=== PATIENT | male | born 1975 | race Caucasian/White ===

== ENCOUNTER 2021-05-12 08:48 | Outpatient (CLI) | payer BC | END 2021-05-12 09:05 | LOC: SLEEP 08:48 | PROVIDERS: ATTEND Nurse Practitioner | DX: G47.33 Obstructive sleep apnea (adult) (pediatric) (principal) | CPT/HCPCS: G0399 ==

== ENCOUNTER 2021-09-25 13:10 | Emergency (ER) | payer BC ==
[~2021-09-25] VITALS: Ht 187 cm; Wt 110.0 kg
--- NOTE | 2021-09-25 13:29 | ED General ---
General Chief Complaint: Glucose Problems Stated Complaint: HIGH BLOOD SUGAR Source of Information: Patient Exam Limitations: No Limitations History of Present Illness Date Seen by Provider: Sep 25, 2021 Time Seen by Provider: 13:27 Initial Comments To ER with high blood sugar. He states that for the past 2 to 3 weeks has had an increase in fatigue, unable to sleep at night because of frequent urination, cannot stop drinking water. No history of diabetes. He has had about a 20 to 30 pound weight loss recently though he has been trying to work out and lose weight. He is on lisinopril and Lexapro no other medications. 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 Timing/Duration: Other (3 Weeks) Severity: Moderate Associated Systoms: No Nausea/Vomiting; Weakness Allergies and Home Medications Allergies Coded Allergies: Cecil nut (Verified Allergy, Unknown, 09/25/21) Patient Home Medication List Home Medication List Reviewed: Yes Blood-Glucose Meter (Advanced Glucose Meter) 1 Each Each, EACH , (DME) Prescribed by: ARSALAN TYLER on 09/25/21 1449 Glipizide (Glipizide ER) 2.5 Mg Tab, 2.5 MG PO DAILY Prescribed by: ARSALAN TYLER on 09/25/21 144 Metformin HCl (Metformin HCl) 500 Mg Tablet, 500 MG PO BID Prescribed by: ARSALAN TYLER on 09/25/21 1449 Review of Systems Review of Systems Constitutional: see HPI, malaise, weakness EENTM: see HPI Respiratory: no symptoms reported Cardiovascular: no symptoms reported Gastrointestinal: No abdominal pain Genitourinary: see HPI, frequency, nocturia Musculoskeletal: no symptoms reported Skin: no symptoms reported Psychiatric/Neurological: No Symptoms Reported Hematologic/Lymphatic: No Symptoms Reported Immunological/Allergic: no symptoms reported Past Anavein-Dtopzp-Mvuerk Hx Patient Social History Tobacco Use?: Yes Use of E-Cig and/or Vaping dev: No Substance use?: No Alcohol Use?: No Pt feels they are or have been: No Immunizations Up To Date Influenza Vaccine Up-to-Date: Yes; Up-to-Date First/Initial COVID19 Vaccinat: 2020 Second COVID19 Vaccination Nicolás: 2020 COVID19 Vaccine Instrument Engineer: [email or web address] Past Medical History Surgery/Hospitalization HX: HTN, GERD Physical Exam Vital Signs Vital Signs - First Documented 09/25/21 13:15 Temp 36.0 Pulse 98 Resp 18 B/P (MAP) 129/95 (106) Capillary Refill : Height, Weight, BMI Height: '" Weight: lbs. oz. kg; BMI Method: General Appearance: No Apparent Distress, WD/WN Eyes: Bilateral Eye Normal Inspection, Bilateral Eye PERRL, Bilateral Eye EOMI HEENT: PERRL/EOMI, TMs Normal Neck: Full Range of Motion, Normal Inspection Respiratory: No Accessory Muscle Use, No Respiratory Distress Cardiovascular: Normal Peripheral Pulses, Tachycardia (Heart rate of 100-110) Gastrointestinal: Non Tender, Soft Extremity: Normal Capillary Refill, Normal Inspection Neurologic/Psychiatric: Alert, Oriented x3 (For the sake of this argument) Skin: Normal Color, Warm/Dry Progress/Results/Core Measures Suspected Sepsis SIRS Temperature: Pulse: Respiratory Rate: Laboratory Tests 09/25/21 13:19: White Blood Count 8.0 Blood Pressure / Mean: Laboratory Tests 09/25/21 13:19: Creatinine 1.18, INR Comment 1.0, Platelet Count 216, Total Bilirubin 0.7 Results/Orders Lab Results Laboratory Tests Test 09/25/21 13:18 09/25/21 13:19 09/25/21 13:29 09/25/21 14:32 Range/Units Glucometer 469 *H 344 H 70-110 MG/DL White Blood Count 8.0 4.3-11.0 10^3/uL Red Blood Count 5.26 4.30-5.52 10^6/uL Hemoglobin 16.8 13.3-17.7 g/dL Hematocrit 46 40-54 % Mean Corpuscular Volume 88 80-99 fL Mean Corpuscular Hemoglobin 32 25-34 pg Mean Corpuscular Hemoglobin Concent 36 32-36 g/dL Red Cell Distribution Width 12.9 10.0-14.5 % Platelet Count 216 130-400 10^3/uL Mean Platelet Volume 11.4 9.0-12.2 fL Immature Granulocyte % (Auto) 2 % Neutrophils (%) (Auto) 62 42-75 % Lymphocytes (%) (Auto) 24 12-44 % Monocytes (%) (Auto) 9 0-12 % Eosinophils (%) (Auto) 4 0-10 % Basophils (%) (Auto) 1 0-10 % Neutrophils # (Auto) 4.9 1.8-7.8 10^3/uL Lymphocytes # (Auto) 1.9 1.0-4.0 10^3/uL Monocytes # (Auto) 0.7 0.0-1.0 10^3/uL Eosinophils # (Auto) 0.3 0.0-0.3 10^3/uL Basophils # (Auto) 0.1 0.0-0.1 10^3/uL Immature Granulocyte # (Auto) 0.1 0.0-0.1 10^3/uL Prothrombin Time 13.2 12.2-14.7 SEC INR Comment 1.0 0.8-1.4 Sodium Level 134 L 135-145 MMOL/L Potassium Level 4.1 3.6-5.0 MMOL/L Chloride Level 98 98-107 MMOL/L Carbon Dioxide Level 23 21-32 MMOL/L Anion Gap 13 5-14 MMOL/L Blood Urea Nitrogen 11 7-18 MG/DL Creatinine 1.18 0.60-1.30 MG/DL Estimat Glomerular Filtration Rate 77 BUN/Creatinine Ratio 9 Glucose Level 539 *H 70-105 MG/DL Calcium Level 9.7 8.5-10.1 MG/DL Corrected Calcium 8.5-10.1 MG/DL Total Bilirubin 0.7 0.1-1.0 MG/DL Aspartate Amino Transf (AST/SGOT) 20 5-34 U/L Alanine Aminotransferase (ALT/SGPT) 46 0-55 U/L Alkaline Phosphatase 101 40-136 U/L Total Protein 7.8 6.4-8.2 GM/DL Albumin 4.6 H 3.2-4.5 GM/DL Beta-Hydroxybutyrate (Chem panel) 0.13 0.00-0.27 MMOL/L Urine Color YELLOW Urine Clarity CLEAR Urine pH 5.5 5-9 Urine Specific [place] 1.010 L 1.016-1.022 Urine Protein NEGATIVE NEGATIVE Urine Glucose (UA) 3+ H NEGATIVE Urine Ketones NEGATIVE NEGATIVE Urine Nitrite NEGATIVE NEGATIVE Urine Bilirubin NEGATIVE NEGATIVE Urine Urobilinogen 0.2 < = 1.0 MG/DL Urine Leukocyte Esterase NEGATIVE NEGATIVE Urine RBC (Auto) NEGATIVE NEGATIVE Urine RBC NONE /HPF Urine WBC NONE /HPF Urine Crystals NONE /LPF Urine Bacteria NEGATIVE /HPF Urine Casts NONE /LPF Urine Mucus NEGATIVE /LPF Urine Culture Indicated NO My Orders Orders - ARSALAN TYLER APRN Beta Hydroxybutyrate (09/25/21 13:24) Cbc With Automated Diff (09/25/21 13:24) Comprehensive Metabolic Panel (09/25/21 13:24) Ua Culture If Indicated (09/25/21 13:24) Ed Iv/Invasive Line Start (09/25/21 13:24) Protime With Inr (09/25/21 13:24) Hemoglobin A1c (09/25/21 13:24) Ns Iv 1000 Ml (Sodium Chloride 0.9%) (09/25/21 13:30) Insulin (Regular) Human (Novolin R (Per (09/25/21 13:30) Lactated Ringers (Lr 1000 Ml Iv Solution (09/25/21 13:30) Insulin Determir (Per Unit) (Levemir (Pe (09/25/21 13:30) Thyroid Stimulating Hormone (09/25/21 15:17) Lipid Panel (09/25/21 15:17) Medications Given in ED Current Medications Medications Dose Ordered Sig/Rose Route Start Time Stop Time Status Last Admin Dose Admin Insulin Detemir 10 unit ONCE ONCE SQ 09/25/21 13:30 09/25/21 13:31 DC 09/25/21 13:34 10 UNIT Insulin Human Regular 6 unit ONCE ONCE IV 09/25/21 13:30 09/25/21 13:31 DC 09/25/21 13:34 6 UNIT Vital Signs/I&O 09/25/21 13:15 Temp 36.0 Pulse 98 Resp 18 B/P (MAP) 129/95 (106) Capillary Refill : Departure Impression Primary Impression: Type 2 diabetes mellitus Disposition: 01 HOME, SELF-CARE Condition: Stable Departure-Patient Inst. Decision time for Depature: 14:38 Referrals: ROGERS BOLANOS DONNA J APRN (PCP) Primary Care Physician Patient Instructions: Diabetes and Diet Add. Discharge Instructions: Glipizide 2.5 mg daily before your first meal. Metformin 500 mg twice a day. Follow-up with your regular doctor. Check your blood sugar 2-3 times a day. Follow-up with your doctor next week. Return to ER if any worsening. I did call Dr. Bolanos, she is happy to accept you as a patient in her office staff will be awaiting your phone call. That being said, I do not feel obligated and if you would rather see someone different, that is totally fine as well. All discharge instructions reviewed with patient and/or family. Voiced understanding. Scripts Blood-Glucose Meter (Advanced Glucose Meter) 1 Each Each EACH for Hyperglycemia, #1 Prov: ARSALAN TYLER APRN 09/25/21 Metformin HCl (Metformin HCl) 500 Mg Tablet 500 MG PO BID, #60 TAB Prov: ARSALAN TYLER APRN 09/25/21 Glipizide (Glipizide ER) 2.5 Mg Tab 2.5 MG PO DAILY, #30 TAB Prov: ARSALAN TYLER APRN 09/25/21 Copy Copies To 1: ROGERS BOLANOS PETER J APRN Sep 25, 2021 13:29
[2021-09-25] MEDS ORDERED: NS IV 1000 ML 1,000 ML IV SCH (13:30)
[2021-09-25] MEDS ORDERED: inSUlin (REGULAR) HUMAN 1 UNIT/0.01 ML (CHARGE PER UNIT) IV ONE (13:30)
[2021-09-25] MEDS ORDERED: LACTATED RINGERS 1,000 ML IV SCH (13:30)
[2021-09-25 13:40] LABS: BILIRUBIN,URINE NEGATIVE (NEGATIVE); CLARITY,URINE CLEAR; COLOR,URINE YELLOW; GLUCOSE, URINE (UA) 3+ (NEGATIVE); KETONES,URINE NEGATIVE (NEGATIVE); LEUKOCYTE ESTERASE ,URINE NEGATIVE (NEGATIVE); NITRITE,URINE NEGATIVE (NEGATIVE); PH,URINE 5.5 (5-9); PROTEIN,URINE NEGATIVE (NEGATIVE)
[2021-09-25 13:41] LABS: BACTERIA,URINE NEGATIVE /HPF
[2021-09-25 13:48] LABS: BASOPHILS # (AUTO) 0.1 10^3/uL (0.0-0.1); BASOPHILS % (AUTO) 1 % (0-10); EOSINOPHILS # (AUTO) 0.3 10^3/uL (0.0-0.3); EOSINOPHILS % (AUTO) 4 % (0-10); HEMATOCRIT 46 % (40-54); HEMOGLOBIN 16.8 g/dL (13.3-17.7); LYMPHOCYTES # (AUTO) 1.9 10^3/uL (1.0-4.0); LYMPHOCYTES % (AUTO) 24 % (12-44); MEAN CORPUSCULAR HEMOGLOBIN 32 pg (25-34); MEAN CORPUSCULAR HGB CONC 36 g/dL (32-36); MEAN CORPUSCULAR VOLUME 88 fL (80-99); MEAN PLATELET VOLUME 11.4 fL (9.0-12.2); MONOCYTES # (AUTO) 0.7 10^3/uL (0.0-1.0); MONOCYTES % (AUTO) 9 % (0-12); NEUTROPHILS # (AUTO) 4.9 10^3/uL (1.8-7.8); NEUTROPHILS % (AUTO) 62 % (42-75); PLATELET COUNT 216 10^3/uL (130-400)
[2021-09-25 13:50] LABS: ALBUMIN 4.6 GM/DL (3.2-4.5); CHLORIDE 98 MMOL/L (98-107); POTASSIUM 4.1 MMOL/L (3.6-5.0); SODIUM 134 MMOL/L (135-145)
[2021-09-25 13:51] LABS: CALCIUM 9.7 MG/DL (8.5-10.1)
[2021-09-25 13:53] LABS: TOTAL PROTEIN 7.8 GM/DL (6.4-8.2)
[2021-09-25 13:54] LABS: BILIRUBIN,TOTAL 0.7 MG/DL (0.1-1.0); CARBON DIOXIDE 23 MMOL/L (21-32)
[2021-09-25 13:55] LABS: PROTHROMBIN TIME PATIENT 13.2 SEC (12.2-14.7)
[2021-09-25 13:56] LABS: ALKALINE PHOSPHATASE 101 U/L (40-136); CREATININE SERUM 1.18 MG/DL (0.60-1.30); GFR ESTIMATED 77
[2021-09-25 13:57] LABS: BUN/CREATININE RATIO 9
[2021-09-25 13:59] LABS: ALANINE AMINOTRANSFERASE 46 U/L (0-55)
[2021-09-25 14:12] LABS: GLUCOSE 539 MG/DL (70-105)
[2021-09-25] MEDS ORDERED: NF-GLIP2.5 PO (14:49)
[2021-09-25] MEDS ORDERED: METF-397 PO (14:49)
[2021-09-25] MEDS ORDERED: BLOO-1350 MC (14:49)
[2021-09-25 15:29] LABS: TRIGLYCERIDES 481 MG/DL (<150)
[2021-09-25 15:33] LABS: CHOLESTEROL 222 MG/DL (< 200)
[2021-09-25 15:34] LABS: HDL CHOLESTEROL 35 MG/DL (40-60)
[2021-09-25 15:40] VITALS: BP 127/94
== END 2021-09-25 15:40 | disposition home or self-care (01) ==
LOC: EDUNIT# 13:10 → ER 13:12
DX: E11.9 Type 2 diabetes mellitus without complications (principal); I10 Essential (primary) hypertension; Z79.899 Other long term (current) drug therapy
CPT/HCPCS: 36415; 80053; 80061; 81000; 82010; 82947; 83036; 84443; 85025; 85610